=== PATIENT | male | born 1965 | race Caucasian/White ===

== ENCOUNTER 2020-10-29 14:21 | Inpatient (IN) | payer BC ==
[2020-10-29] MEDS ORDERED: KETOROLAC 15 MG/ML 1 ML VIAL IVP STA (15:17)
[2020-10-29] MEDS ORDERED: SODIUM CHLORIDE 0.9% 1,000 ML IV STA (15:17)
--- NOTE | 2020-10-29 15:25 | ED ---
Abdominal Pain HPI - General Chief Complaint: Abdominal Pain Stated Complaint: Abd Pain Source: patient, family, RN notes reviewed Mode of arrival: ambulatory Limitations: no limitations - History of Present Illness Initial Comments: 55-year-old white male, alert and oriented 4, presents to the emergency room with complaints right lower quadrant abdominal pain since Sunday and dark urine today. Patient was sent by his primary care doctor Dr. morgan for evaluation of kidney stone versus appendicitis. Patient states he has nausea but no vomiting or diarrhea. Patient states he drinks coffee in the morning and then maybe 1 glass of water throughout the day. Has noticed that his urine has been dark in color. Patient states he did have a small bowel movement yesterday. Denies hematochezia or hematemesis. He states that the pain is relieved with movement or is trying to get comfortable. He has been taking Advil which provides him some relief. Patient states that he does have some fever and chills. Patient denies abdominal pain or chest pain or pain that radiates into his mid back. Patient states he does have chronic low back pain. He is a pack-a-day smoker MD Complaint: abdominal pain -: days(s) (3) Location: RLQ Radiation: back (Low back pain but states chronic) Severity scale (1-10): 6 Quality: cramping Consistency: constant Improves With: movement Worsens With: nothing Associated Symptoms: nausea, chills, other (Dark urine) Treatments Prior to Arrival: NSAIDs (Advil) - Related Data Home Medications Medication Instructions Recorded Confirmed Ibuprofen [Advil] 400 mg PO Q8HR PRN 10/29/20 10/29/20 Allergies Allergy/AdvReac Type Severity Reaction Status Date / Time No Known Allergies Allergy Verified 10/29/20 15:41 Review of Systems ROS Statement: Those systems with pertinent positive or pertinent negative responses have been documented in the HPI. ROS Other: All systems not noted in ROS Statement are negative. Past Medical History Past Medical History: Hyperlipidemia History of Any Multi-Drug Resistant Organisms: None Reported Past Surgical History: No Surgical Hx Reported Past Psychological History: No Psychological Hx Reported Smoking Status: Current every day smoker Past Alcohol Use History: None Reported Past Drug Use History: None Reported General Exam Limitations: no limitations General appearance: alert, in no apparent distress Head exam: Present: atraumatic, normocephalic, normal inspection Eye exam: Present: normal appearance, PERRL, EOMI. Absent: scleral icterus, conjunctival injection, periorbital swelling Pupils: Present: normal accommodation ENT exam: Present: normal exam, normal oropharynx, mucous membranes moist Neck exam: Present: normal inspection, full ROM. Absent: tenderness, meningismus, lymphadenopathy Respiratory exam: Present: normal lung sounds bilaterally. Absent: respiratory distress, wheezes, rales, rhonchi, stridor, chest wall tenderness, accessory muscle use, decreased breath sounds Cardiovascular Exam: Present: regular rate, normal rhythm, normal heart sounds. Absent: systolic murmur, diastolic murmur, rubs, gallop, clicks GI/Abdominal exam: Present: soft, tenderness (Right lower quadrant), normal bowel sounds. Absent: distended, guarding, rebound, rigid Extremities exam: Present: normal inspection, full ROM, normal capillary refill. Absent: tenderness, pedal edema, joint swelling, calf tenderness Back exam: Present: normal inspection, full ROM. Absent: tenderness, CVA tenderness (R), CVA tenderness (L), muscle spasm, paraspinal tenderness, vertebral tenderness, rash noted Neurological exam: Present: alert, oriented X3, CN II-XII intact Psychiatric exam: Present: normal affect, normal mood Skin exam: Present: warm, dry, intact, normal color. Absent: rash, cyanosis, diaphoretic, erythema, petechiae, pallor, mottled Course Vital Signs 10/29/20 10/29/20 10/29/20 14:42 15:44 16:00 Temperature 99.1 F Pulse Rate 85 84 Respiratory 18 18 18 Rate Blood Pressure 115/71 124/81 O2 Sat by Pulse 98 96 Oximetry 10/29/20 10/29/20 17:00 18:00 Temperature Pulse Rate 84 81 Respiratory 18 18 Rate Blood Pressure 125/78 136/89 O2 Sat by Pulse 96 96 Oximetry Medical Decision Making - Medical Decision Making Patient with a WBC count of 17.7 and neutrophil count of 15.2, there is bilirubin level 2.9 with an alk phos of 172 which is comparable to the [address] shows diverticulitis with perforation there is mild sigmoid diverticulitis with perforation and there is no drainable abscess, there is moderate inflammatory changes around the sigmoid colon. 2+ ketones in the urine, patient given 2 L of normal saline. Case discussed with Dr Bonilla. Spoke with Dr Vora who will consult, will admit to medicine Dr Bee. - Lab Data Result diagrams: 10/29/20 15:45 10/29/20 15:45 Lab Results 10/29/20 10/29/20 10/29/20 Range/Units 15:45 15:45 15:45 WBC 17.7 H (3.8-10.6) k/uL RBC 4.71 (4.30-5.90) m/uL Hgb 16.9 (13.0-17.5) gm/dL Hct 46.5 (39.0-53.0) % MCV 98.9 (80.0-100.0) fL MCH 35.8 H (25.0-35.0) pg MCHC 36.3 (31.0-37.0) g/dL RDW 11.8 (11.5-15.5) % Plt Count 154 (150-450) k/uL MPV 8.0 Neutrophils % 86 % Lymphocytes % 6 % Monocytes % 6 % Eosinophils % 1 % Basophils % 0 % Neutrophils # 15.2 H (1.3-7.7) k/uL Lymphocytes # 1.1 (1.0-4.8) k/uL Monocytes # 1.1 H (0-1.0) k/uL Eosinophils # 0.1 (0-0.7) k/uL Basophils # 0.1 (0-0.2) k/uL PT 10.3 (9.0-12.0) sec INR 1.0 (<1.2) APTT 22.9 (22.0-30.0) sec Sodium (137-145) mmol/L Potassium (3.5-5.1) mmol/L Chloride (98-107) mmol/L Carbon Dioxide (22-30) mmol/L Anion Gap mmol/L BUN (9-20) mg/dL Creatinine (0.66-1.25) mg/dL Est GFR (CKD-EPI)AfAm (>60 ml/min/1.73 sqM) Est GFR (CKD-EPI)NonAf (>60 ml/min/1.73 sqM) Glucose (74-99) mg/dL Calcium (8.4-10.2) mg/dL Total Bilirubin (0.2-1.3) mg/dL AST (17-59) U/L ALT (4-49) U/L Alkaline Phosphatase (38-126) U/L Troponin I (0.000-0.034) ng/mL Total Protein (6.3-8.2) g/dL Albumin (3.5-5.0) g/dL Amylase (30-110) U/L Lipase (23-300) U/L Urine Color [place] Urine Appearance Clear (Clear) Urine pH 5.5 (5.0-8.0) Ur Specific [place] 1.028 (1.001-1.035) Urine Protein 1+ H (Negative) Urine Glucose (UA) Negative (Negative) Urine Ketones 2+ H (Negative) Urine Blood Large H (Negative) Urine Nitrite Negative (Negative) Urine Bilirubin 1+ H (Negative) Urine Urobilinogen 4.0 (<2.0) mg/dL Ur Leukocyte Esterase Small H (Negative) Urine RBC 13 H (0-5) /hpf Urine WBC 7 H (0-5) /hpf Ur Squamous Epith Cells <1 (0-4) /hpf Urine Bacteria Rare H (None) /hpf Hyaline Casts 3 H (0-2) /lpf Granular Casts 1 (0) /lpf Urine Mucus Few H (None) /hpf 10/29/20 10/29/20 Range/Units 15:45 15:45 WBC (3.8-10.6) k/uL RBC (4.30-5.90) m/uL Hgb (13.0-17.5) gm/dL Hct (39.0-53.0) % MCV (80.0-100.0) fL MCH (25.0-35.0) pg MCHC (31.0-37.0) g/dL RDW (11.5-15.5) % Plt Count (150-450) k/uL MPV Neutrophils % % Lymphocytes % % Monocytes % % Eosinophils % % Basophils % % Neutrophils # (1.3-7.7) k/uL Lymphocytes # (1.0-4.8) k/uL Monocytes # (0-1.0) k/uL Eosinophils # (0-0.7) k/uL Basophils # (0-0.2) k/uL PT (9.0-12.0) sec INR (<1.2) APTT (22.0-30.0) sec Sodium 136 L (137-145) mmol/L Potassium 4.1 (3.5-5.1) mmol/L Chloride 104 (98-107) mmol/L Carbon Dioxide 23 (22-30) mmol/L Anion Gap 9 mmol/L BUN 14 (9-20) mg/dL Creatinine 1.19 (0.66-1.25) mg/dL Est GFR (CKD-EPI)AfAm 78 (>60 ml/min/1.73 sqM) Est GFR (CKD-EPI)NonAf 68 (>60 ml/min/1.73 sqM) Glucose 111 H (74-99) mg/dL Calcium 8.9 (8.4-10.2) mg/dL Total Bilirubin 2.9 H (0.2-1.3) mg/dL AST 29 (17-59) U/L ALT 39 (4-49) U/L Alkaline Phosphatase 172 H (38-126) U/L Troponin I <0.012 (0.000-0.034) ng/mL Total Protein 6.8 (6.3-8.2) g/dL Albumin 4.1 (3.5-5.0) g/dL Amylase 66 (30-110) U/L Lipase 68 (23-300) U/L Urine Color Urine Appearance (Clear) Urine pH (5.0-8.0) Ur Specific [place] (1.001-1.035) Urine Protein (Negative) Urine Glucose (UA) (Negative) Urine Ketones (Negative) Urine Blood (Negative) Urine Nitrite (Negative) Urine Bilirubin (Negative) Urine Urobilinogen (<2.0) mg/dL Ur Leukocyte Esterase (Negative) Urine RBC (0-5) /hpf Urine WBC (0-5) /hpf Ur Squamous Epith Cells (0-4) /hpf Urine Bacteria (None) /hpf Hyaline Casts (0-2) /lpf Granular Casts (0) /lpf Urine Mucus (None) /hpf Disposition Clinical Impression: Diverticulitis Disposition: ADMITTED IP TO THIS [facility] Condition: Fair Decision Date: 10/29/20 Decision Time: 17:02
[2020-10-29 16:04] LABS: Basophils # (A) 0.1 k/uL (0-0.2); Basophils % (A) 0 %; Eosinophils # (A) 0.1 k/uL (0-0.7); Eosinophils % (A) 1 %; HCT 46.5 % (39.0-53.0); HGB 16.9 gm/dL (13.0-17.5); Lymphocytes # (A) 1.1 k/uL (1.0-4.8); Lymphocytes % (A) 6 %; MCH 35.8 pg (25.0-35.0); MCHC 36.3 g/dL (31.0-37.0); MCV 98.9 fL (80.0-100.0); Monocytes # (A) 1.1 k/uL (0-1.0); Monocytes % (A) 6 %; Neutrophils # (A) 15.2 k/uL (1.3-7.7); Neutrophils % (A) 86 %; Platelet Count 154 k/uL (150-450); RBC 4.71 m/uL (4.30-5.90); RDW 11.8 % (11.5-15.5); WBC 17.7 k/uL (3.8-10.6)
[2020-10-29 16:12] LABS: Partial Thromboplastin Time 22.9 sec (22.0-30.0); Prothrombin Time 10.3 sec (9.0-12.0)
[2020-10-29 16:15] LABS: Albumin 4.1 g/dL (3.5-5.0); Calcium 8.9 mg/dL (8.4-10.2); Potassium 4.1 mmol/L (3.5-5.1); Total Bilirubin 2.9 mg/dL (0.2-1.3); Total Protein 6.8 g/dL (6.3-8.2)
[2020-10-29] MEDS ORDERED: MORPHINE SULFATE 2 MG/ML SYRINGE IVP ONE (16:21)
--- NOTE | 2020-10-29 16:40 | CT ---
EXAMINATION TYPE: CT abdomen pelvis wo con DATE OF EXAM: 10/29/2020 COMPARISON: 04/09/2013 HISTORY: Right sided flank ad abdomen pain with unrination changes CT DLP: 827.9 mGycm Automated exposure control for dose reduction was used. Images obtained from the diaphragm to the floor the pelvis with no contrast. Lung bases are clear. There is no pleural effusion. Heart size is normal. There is no pericardial eff usion. Liver spleen stomach pancreas gallbladder appear intact. The bile ducts are not dilated. There is no adrenal mass. Kidneys show normal size and contour. There is no hydronephrosis. There is no retroperitoneal adenopathy. The ureters are not dilated. The bladder distends smoothly. There is n o inguinal hernia. There is no free fluid in the pelvis. There is no ascites. There is no free air in the anterior abdomen. There is moderate fat stranding around the sigmoid colon. There are numerous diverticula. There is ex traluminal air anterior to the mid sigmoid colon. There is no drainable fluid collection. Appendix appears normal. The lumbar vertebra have normal alignment. There is no compression fracture. Disc spaces are fairly n ormal. The bony pelvis is intact. Hip joints are intact. There is no hip dysplasia. IMPRESSION: There is sigmoid diverticulitis with perforation. No drainable abscess fluid seen. Moderate inflammat ory changes around the sigmoid colon. Diverticulitis is a change compared to old exam.
[2020-10-29] MEDS ORDERED: PIPERACILLIN-TAZOBACTAM 3.375 GM in SODIUM CHLORIDE 0.9% 100 ML IVPB STA (16:59)
[2020-10-29] MEDS ORDERED: NALOXONE 0.4 MG/ML 1 ML VIAL IV PRN (17:03)
[2020-10-29 18:09] LABS: Appearance,Urine Clear (Clear); Bacteria,Urine Rare /hpf; Bilirubin,Urine 1+ (Negative); Blood,Urine Large (Negative); Color,Urine Orange; Glucose,Urine (UA) Negative (Negative); Granular Casts,Urine 1 /lpf (0); Hyaline Casts,Urine 3 /lpf (0-2); Ketones,Urine 2+ (Negative); Leukocyte Esterase,Urine Small (Negative); Mucus,Urine Few /hpf; Nitrite,Urine Negative (Negative); PH, Urine 5.5 (5.0-8.0); Protein,Urine 1+ (Negative); RBC,Urine 13 /hpf (0-5); Specific Gravity,Urine 1.028 (1.001-1.035); Squamous Epithelial Cell,Urine <1 /hpf (0-4); WBC,Urine 7 /hpf (0-5)
[2020-10-29] MEDS: SODIUM CHLORIDE 0.9% 1,000 ML IV SCH (18:16)
[2020-10-29] MEDS ORDERED: SODIUM CHLORIDE 0.9% 1,000 ML IV ONE (18:21)
[2020-10-29] MEDS ORDERED: HYDROmorphone 0.5 MG/0.5 ML SYRINGE IVP PRN (20:46)
--- NOTE | 2020-10-29 22:49 | XR ---
EXAMINATION TYPE: XR abdomen acute w cxr DATE OF EXAM: 10/29/2020 COMPARISON: NONE HISTORY: Perforation TECHNIQUE: 5 views FINDINGS: There is no sign of intestinal obstruction or pneumoperitoneum. Fecal pattern is normal. Th ere are no pathologic calcifications over the kidneys. There is no heart failure. Lungs are clear of consolidation. There is no pleural effusion. There are no hilar masses. The bony structures are intact. IMPRESSION: Nonacute abdomen. No active cardiopulmonary disease. Limited exam due to artifact over th e left upper quadrant.
[2020-10-29] MEDS: HEPARIN SODIUM,PORCINE/PF 5,000 UNIT/0.5 ML SYRINGE SQ SCH (22:55)
[2020-10-30] MEDS: HYDROcodone/APAP 5-325MG 1 EACH TAB PO PRN ×4 (00:26→19:58)
[2020-10-30] MEDS: PIPERACILLIN-TAZOBACTAM 3.375 GM in SODIUM CHLORIDE 0.9% 100 ML IVPB SCH ×3 (01:50→17:04)
--- NOTE | 2020-10-30 06:38 | HP ---
HISTORY AND PHYSICAL DATE OF SERVICE: 10/29/2020 CHIEF COMPLAINTS: Abdominal pain. HISTORY OF PRESENT ILLNESS: This 55-year-old gentleman with a past medical history of hypertension, hyperlipidemia, being followed by Kris Alan in the outpatient setting, had been admitted with abdominal pain. The pain has been there for the last couple days in the lower part of the abdomen which is radiating across and the patient had an abdomen and pelvis CAT scan in the ER which showed evidence of sigmoid diverticulitis with perforation. No drainable abscess was noted. Moderate inflammatory changes also noted. The patient was admitted for further evaluation and treatment. There is no history of fever, rigors or chills. No history of headache, loss of consciousness, seizures. PAST MEDICAL HISTORY: History of hyperlipidemia, history of nicotine dependence. MEDICATIONS: Home medications are Advil. ALLERGIES: None. FAMILY HISTORY: No history of heart attacks or strokes in the family. SOCIAL HISTORY: History of smoking. REVIEW OF SYSTEMS: ENT No history of diminished hearing or vision. CARDIOVASCULAR No angina or palpitations. RESPIRATORY No cough, no hemoptysis. GI As mentioned earlier. No dysuria or hematuria. NERVOUS No numbness or weakness. ALLERGY/IMMUNOLOGY No asthma or hayfever. MUSCULOSKELETAL As mentioned earlier. HEMATOLOGY/ONCOLOGY Negative. ENDOCRINE No history of diabetes or hypothyroidism. CONSTITUTIONAL As mentioned earlier. DERMATOLOGY Negative. RHEUMATOLOGY Negative, PSYCHIATRY As mentioned earlier. PHYSICAL EXAMINATION: Alert and oriented x3. The pulse is 83, blood pressure 124/70, respirations 16, temperature 100.2, pulse ox 99% on room air. HEENT: Conjunctivae normal. Oral mucosa moist. NECK: No jugular venous distention. No lymph node enlargement. CARDIOVASCULAR: S1, S2, muffled. No S3, no S4, RESPIRATORY: Diminished breath sounds at the bases. No rhonchi, no crackles. ABDOMEN: Soft. Mild diffuse tenderness. No rebound tenderness. LEGS: No edema, no swelling. NERVOUS SYSTEM: Higher functions mentioned earlier. Moves all four limbs. No focal motor or sensory deficits. LYMPHATICS: No lymph node in neck or axilla. SKIN: No rash. JOINTS: No active deforming arthropathy. LABS: At this time shows WBC 17.2, hemoglobin 16.9, sodium 136, total bilirubin is 2.9. ASSESSMENT: 1. Acute diverticulitis with perforation with possible sepsis present on admission. 2. Increased WBC. 3. Severe abdominal pain. 4. Hyponatremia. 5. Elevated total bilirubin. 6. History of hyperlipidemia. 7. History of nicotine dependence. 8. FULL CODE. RECOMMENDATIONS AND DISCUSSION: In this 55-year-old gentleman who presented with multiple complex medical issues, we will monitor the patient closely, continue the current treatment, broad-spectrum IV antibiotics. Otherwise, symptomatic treatment, surgical evaluation. DVT prophylaxis. Proton pump inhibitors. Prognosis guarded because of multiple complex medical issues. Further recommendations to follow. MMODL / IJN: [id number] /
[2020-10-30] MEDS: SODIUM CHLORIDE 0.9% 1,000 ML IV SCH ×2 (06:42→13:40)
[2020-10-30] MEDS: HEPARIN SODIUM,PORCINE/PF 5,000 UNIT/0.5 ML SYRINGE SQ SCH ×2 (07:24→19:59)
[2020-10-30] MEDS ORDERED: ONDANSETRON 4 MG/2 ML VIAL IVP PRN (07:25)
[2020-10-30 09:17] LABS: Basophils # (A) 0.05 X 10*3/uL (0.00-0.10); Basophils % (A) 0.3 %; Eosinophils # (A) 0.04 X 10*3/uL (0.04-0.35); Eosinophils % (A) 0.3 %; HCT 40.2 % (39.6-50.0); HGB 14.1 g/dL (13.0-17.0); Lymphocytes # (A) 1.48 X 10*3/uL (0.90-5.00); Lymphocytes % (A) 9.5 %; MCH 35.3 pg (27.0-32.0); MCHC 35.1 g/dL (32.0-37.0); MCV 100.8 fL (80.0-97.0); Mean Platelet Volume 10.9 fL (9.5-12.2); Monocytes # (A) 1.26 X 10*3/uL (0.20-1.00); Monocytes % (A) 8.1 %; Neutrophils # (A) 12.59 X 10*3/uL (1.80-7.70); Neutrophils % (A) 81.2 %; Platelet Count 152 X 10*3/uL (140-440); RBC 3.99 X 10*6/uL (4.40-5.60); RDW 11.9 % (11.5-14.5); WBC 15.52 X 10*3/uL (4.50-10.00)
[2020-10-30 10:10] LABS: African American GFR (CKD) 85.9 (60.0-200.0); BUN/Creat Ratio 12.73 Ratio (12.00-20.00); Calcium 7.8 mg/dL (8.7-10.3); Non-African American GFR(CKD) 74.1 (60.0-200.0)
--- NOTE | 2020-10-30 13:14 | P.GSCN ---
History of Present Illness Consult date: 10/30/20 History of present illness: This 55-year-old male presented a hospital with a history of 3 days of left lower quadrant and suprapubic abdominal pain. He states that this began 3 days ago and progressively been getting worse he states that he's had small bowel movements but they've been painful he's never had diverticulitis in the past she's never had a colonoscopy before in the past. He denies any nausea or vomiting he denies any other recent illness. Past Medical History Past Medical History: Hyperlipidemia History of Any Multi-Drug Resistant Organisms: None Reported Past Surgical History: No Surgical Hx Reported Past Psychological History: No Psychological Hx Reported Smoking Status: Current every day smoker Past Alcohol Use History: None Reported Past Drug Use History: None Reported Medications and Allergies Home Medications Medication Instructions Recorded Confirmed Type Ibuprofen [Advil] 400 mg PO Q8HR PRN 10/29/20 10/29/20 History Allergies Allergy/AdvReac Type Severity Reaction Status Date / Time No Known Allergies Allergy Verified 10/29/20 15:41 Surgical - Exam Osteopathic Statement: *. No significant issues noted on an osteopathic structural exam other than those noted in the History and Physical/Consult. Vital Signs Temp Pulse Resp BP Pulse Ox 99.1 F 85 18 115/71 98 10/29/20 14:42 10/29/20 14:42 10/29/20 14:42 10/29/20 14:42 10/29/20 14:42 - General well developed, well nourished, no distress - Respiratory normal expansion - Abdomen Mild tenderness palpation left lower quadrant suprapubic no rebound no rigidity no guarding Abdomen: soft - Psychiatric oriented to time, oriented to person, oriented to place Results - Labs 10/30/20 06:12 10/30/20 06:12 Abnormal Lab Results - Last 24 Hours (Table) 10/29/20 10/29/20 10/29/20 Range/Units 15:45 15:45 15:45 WBC 17.7 H (3.8-10.6) k/uL RBC (4.40-5.60) X 10*6/uL MCV (80.0-97.0) fL MCH 35.8 H (25.0-35.0) pg Immature Gran # (0.00-0.04) X 10*3/uL Neutrophils # 15.2 H (1.3-7.7) k/uL Monocytes # 1.1 H (0-1.0) k/uL Sodium 136 L (137-145) mmol/L Carbon Dioxide (21.6-31.8) mmol/L Glucose 111 H (74-99) mg/dL Calcium (8.7-10.3) mg/dL Total Bilirubin 2.9 H (0.2-1.3) mg/dL Alkaline Phosphatase 172 H (38-126) U/L Urine Protein 1+ H (Negative) Urine Ketones 2+ H (Negative) Urine Blood Large H (Negative) Urine Bilirubin 1+ H (Negative) Ur Leukocyte Esterase Small H (Negative) Urine RBC 13 H (0-5) /hpf Urine WBC 7 H (0-5) /hpf Urine Bacteria Rare H (None) /hpf Hyaline Casts 3 H (0-2) /lpf Urine Mucus Few H (None) /hpf 10/30/20 10/30/20 Range/Units 06:12 06:12 WBC 15.52 H (3.8-10.6) k/uL RBC 3.99 L (4.40-5.60) X 10*6/uL MCV 100.8 H (80.0-97.0) fL MCH 35.3 H (25.0-35.0) pg Immature Gran # 0.10 H (0.00-0.04) X 10*3/uL Neutrophils # 12.59 H (1.3-7.7) k/uL Monocytes # 1.26 H (0-1.0) k/uL Sodium (137-145) mmol/L Carbon Dioxide 21.0 L (21.6-31.8) mmol/L Glucose (74-99) mg/dL Calcium 7.8 L (8.7-10.3) mg/dL Total Bilirubin (0.2-1.3) mg/dL Alkaline Phosphatase (38-126) U/L Urine Protein (Negative) Urine Ketones (Negative) Urine Blood (Negative) Urine Bilirubin (Negative) Ur Leukocyte Esterase (Negative) Urine RBC (0-5) /hpf Urine WBC (0-5) /hpf Urine Bacteria (None) /hpf Hyaline Casts (0-2) /lpf Urine Mucus (None) /hpf Diabetes panel 10/29/20 10/30/20 Range/Units 15:45 06:12 Sodium 136 L 137 (137-145) mmol/L Potassium 4.1 4.0 (3.5-5.1) mmol/L Chloride 104 108 (98-107) mmol/L Carbon Dioxide 23 21.0 L (22-30) mmol/L BUN 14 14.0 (9-20) mg/dL Creatinine 1.19 1.1 (0.66-1.25) mg/dL Glucose 111 H 92 (74-99) mg/dL Calcium 8.9 7.8 L (8.4-10.2) mg/dL AST 29 (17-59) U/L ALT 39 (4-49) U/L Alkaline Phosphatase 172 H (38-126) U/L Total Protein 6.8 (6.3-8.2) g/dL Albumin 4.1 (3.5-5.0) g/dL Calcium panel 10/29/20 10/30/20 Range/Units 15:45 06:12 Calcium 8.9 7.8 L (8.4-10.2) mg/dL Albumin 4.1 (3.5-5.0) g/dL Pituitary panel 10/29/20 10/30/20 Range/Units 15:45 06:12 Sodium 136 L 137 (137-145) mmol/L Potassium 4.1 4.0 (3.5-5.1) mmol/L Chloride 104 108 (98-107) mmol/L Carbon Dioxide 23 21.0 L (22-30) mmol/L BUN 14 14.0 (9-20) mg/dL Creatinine 1.19 1.1 (0.66-1.25) mg/dL Glucose 111 H 92 (74-99) mg/dL Calcium 8.9 7.8 L (8.4-10.2) mg/dL Adrenal panel 10/29/20 10/30/20 Range/Units 15:45 06:12 Sodium 136 L 137 (137-145) mmol/L Potassium 4.1 4.0 (3.5-5.1) mmol/L Chloride 104 108 (98-107) mmol/L Carbon Dioxide 23 21.0 L (22-30) mmol/L BUN 14 14.0 (9-20) mg/dL Creatinine 1.19 1.1 (0.66-1.25) mg/dL Glucose 111 H 92 (74-99) mg/dL Calcium 8.9 7.8 L (8.4-10.2) mg/dL Total Bilirubin 2.9 H (0.2-1.3) mg/dL AST 29 (17-59) U/L ALT 39 (4-49) U/L Alkaline Phosphatase 172 H (38-126) U/L Total Protein 6.8 (6.3-8.2) g/dL Albumin 4.1 (3.5-5.0) g/dL Assessment and Plan Assessment: Acute diverticulitis Plan: Continue nothing by mouth IV fluids and IV antibiotics at this time. As patient's symptoms began to improve he may start on a clear liquid diet no plans for acute surgical intervention at this time continue to closely monitor
[2020-10-30 18:18] LABS: ALT 23 U/L (4-49); AST 23 U/L (17-59); African American GFR (CKD) >90 (>60 ml/min/1.73 sqM); Albumin 3.3 g/dL (3.5-5.0); Albumin/Globulin Ratio 1.2; Alkaline Phosphatase 124 U/L (38-126); Anion Gap 7 mmol/L; Blood Urea Nitrogen 14 mg/dL (9-20); Calcium 8.1 mg/dL (8.4-10.2); Carbon Dioxide 22 mmol/L (22-30); Chloride 109 mmol/L (98-107); Globulin 2.7 g/dL; Glucose 90 mg/dL (74-99); Non-African American GFR(CKD) 83 (>60 ml/min/1.73 sqM); Potassium 4.1 mmol/L (3.5-5.1); Sodium 138 mmol/L (137-145); Total Bilirubin 2.5 mg/dL (0.2-1.3)
--- NOTE | 2020-10-30 20:37 | PN ---
PROGRESS NOTE DATE OF SERVICE: 10/30/2020. HISTORY: This 55-year-old gentleman who was admitted with acute diverticular perforation with possible sepsis is being closely monitored at this time. Surgery has seen the patient and Dr. Vora has recommended n.p.o. No plans for any acute surgical intervention. No chest pain. No palpitations. No fever. PHYSICAL EXAMINATION: Alert and oriented. Pulse 79, blood pressure 115/60, respirations 16, temperature 98.7, pulse ox 98% on room air. HEENT: Conjunctivae normal. CARDIOVASCULAR: S1, S2, muffled. No S3, no S4. RESPIRATORY: Diminished breath sounds at the bases a few scattered rhonchi. ABDOMEN: Soft mild diffuse discomfort. EXTREMITIES: Legs are no edema. No swelling. CENTRAL NERVOUS SYSTEM: No focal deficits. LABS: WBC 15.52. Sodium is 137, potassium is 4. ASSESSMENT: 1. Acute diverticulitis with perforation with possible sepsis present on admission. 2. Increased WBC. 3. Severe abdominal pain. 4. Hyponatremia. 5. Elevated total bilirubin. 6. History of hyperlipidemia. 7. History of nicotine dependence. 8. FULL CODE. RECOMMENDATIONS: Continue current management and symptomatic treatment. Continue the broad-spectrum IV antibiotics. The cultures are negative so far. Closely follow with surgery. DVT prophylaxis. Guarded prognosis. Further recommendations to follow. Pain management. MMODL / IJN: [id number] /
[2020-10-31] MEDS: PIPERACILLIN-TAZOBACTAM 3.375 GM in SODIUM CHLORIDE 0.9% 100 ML IVPB SCH ×3 (01:26→17:11)
[2020-10-31] MEDS: SODIUM CHLORIDE 0.9% 1,000 ML IV SCH ×3 (01:29→19:21)
[2020-10-31] MEDS: HYDROcodone/APAP 5-325MG 1 EACH TAB PO PRN (04:12)
[2020-10-31] MEDS: HEPARIN SODIUM,PORCINE/PF 5,000 UNIT/0.5 ML SYRINGE SQ SCH ×2 (07:13→19:25)
[2020-10-31 10:50] LABS: Basophils # (A) 0.03 X 10*3/uL (0.00-0.10); Basophils % (A) 0.3 %; Eosinophils # (A) 0.17 X 10*3/uL (0.04-0.35); Eosinophils % (A) 1.6 %; HGB 13.4 g/dL (13.0-17.0); Lymphocytes # (A) 1.32 X 10*3/uL (0.90-5.00); Lymphocytes % (A) 12.2 %; MCH 34.9 pg (27.0-32.0); MCHC 33.5 g/dL (32.0-37.0); MCV 104.2 fL (80.0-97.0); Monocytes # (A) 0.77 X 10*3/uL (0.20-1.00); Monocytes % (A) 7.1 %; Neutrophils # (A) 8.49 X 10*3/uL (1.80-7.70); Neutrophils % (A) 78.1 %; Platelet Count 152 X 10*3/uL (140-440); RBC 3.84 X 10*6/uL (4.40-5.60); WBC 10.86 X 10*3/uL (4.50-10.00)
--- NOTE | 2020-10-31 14:13 | P.PN ---
Subjective Progress Note Date: 10/31/20 Patient is doing well today his pain is somewhat improved but still there and the left lower quadrant. He did have a bowel movement this afternoon. Objective - Vital Signs Vital signs: Vital Signs Temp 97.7 F 10/31/20 13:56 Pulse 74 10/31/20 13:56 Resp 18 10/31/20 13:56 BP 108/65 10/31/20 13:56 Pulse Ox 97 10/31/20 13:56 Intake & Output 10/30/20 10/31/20 10/31/20 18:59 06:59 18:59 Intake Total 1000 1000 Balance 1000 1000 Intake: Intake, IV Titration 1000 1000 Amount Piperacillin-Tazobactam 3 200 200 .375 gm In Sodium Chloride 0.9% 100 ml @ 25 mls/hr IVPB Q8H [facility] Rx#: [id number] Sodium Chloride 0.9% 1, 800 800 000 ml @ 100 mls/hr IV . Q10H [facility] Rx#:[id number] Other: Voiding Method Toilet # Voids 2 # Bowel Movements 0 - Constitutional General appearance: Present: cooperative - Cardiovascular Rhythm: regular - Gastrointestinal Gastrointestinal Comment(s): Soft nondistended minimal tenderness palpation left lower quadrant - Labs CBC & Chem 7: 10/31/20 05:12 10/30/20 17:31 Labs: Abnormal Lab Results - Last 24 Hours (Table) 10/30/20 10/31/20 Range/Units 17:31 05:12 WBC 10.86 H (4.50-10.00) X 10*3/uL RBC 3.84 L (4.40-5.60) X 10*6/uL MCV 104.2 H (80.0-97.0) fL MCH 34.9 H (27.0-32.0) pg Immature Gran # 0.08 H (0.00-0.04) X 10*3/uL Neutrophils # 8.49 H (1.80-7.70) X 10*3/uL Chloride 109 H (98-107) mmol/L Calcium 8.1 L (8.4-10.2) mg/dL Total Bilirubin 2.5 H (0.2-1.3) mg/dL Total Protein 6.0 L (6.3-8.2) g/dL Albumin 3.3 L (3.5-5.0) g/dL Microbiology - Last 24 Hours (Table) 10/30/20 17:44 Urine Culture - Preliminary Urine,Clean Catch Assessment and Plan Assessment: Acute diverticulitis Plan: Patient may have sparing clears. Continue IV antibiotics continue to monitor.
--- NOTE | 2020-10-31 15:09 | PN ---
PROGRESS NOTE DATE OF SERVICE: 10/31/2020 HISTORY: This 55-year-old gentleman who was admitted with acute diverticulosis and possible perforation with sepsis being closely monitored at this time. The cultures are negative. The patient on broad spectrum IV antibiotics. Surgery is following the patient closely. PHYSICAL EXAMINATION: Alert and oriented. Pulse 74, blood pressure 108/60, respiration 18, temperature 97.7, pulse ox 97% on room air. HEENT: Normal. CARDIOVASCULAR: S1, S2 muffled. RESPIRATORY: Diminished respiration in the bases, no rhonchi. ABDOMEN: Soft, mild diffuse distention. LEGS: No edema, no swelling. LABS: WBC 10.86, hemoglobin 13.4. UA noted. ASSESSMENT: 1. Acute diverticulitis with possible perforation with possible sepsis present on admission. 2. Increased WBC. 3. Severe abdominal pain. 4. Hyponatremia. 5. Elevated total bilirubin. 6. History of hyperlipidemia. 7. History of nicotine dependence. 8. FULL CODE. RECOMMENDATIONS AND DISCUSSION: I recommend to continue current medications, management and treatment. Otherwise at this time I recommend repeat labs, continue the antibiotics. Closely follow with surgery. Guarded prognosis. MMODL / IJN: [id number] /
[2020-10-31 15:43] LABS: ALT 20 U/L (4-49); AST 24 U/L (17-59); African American GFR (CKD) >90 (>60 ml/min/1.73 sqM); Albumin 3.1 g/dL (3.5-5.0); Albumin/Globulin Ratio 1.2; Alkaline Phosphatase 123 U/L (38-126); Anion Gap 9 mmol/L; Blood Urea Nitrogen 13 mg/dL (9-20); Calcium 8.1 mg/dL (8.4-10.2); Carbon Dioxide 19 mmol/L (22-30); Chloride 110 mmol/L (98-107); Globulin 2.6 g/dL; Glucose 81 mg/dL (74-99); Non-African American GFR(CKD) >90 (>60 ml/min/1.73 sqM); Potassium 3.8 mmol/L (3.5-5.1); Sodium 138 mmol/L (137-145); Total Bilirubin 2.2 mg/dL (0.2-1.3); Total Protein 5.7 g/dL (6.3-8.2)
[2020-11-01] MEDS ORDERED: ACETAMINOPHEN TAB 325 MG TAB PO PRN (00:49)
[2020-11-01] MEDS: PIPERACILLIN-TAZOBACTAM 3.375 GM in SODIUM CHLORIDE 0.9% 100 ML IVPB SCH ×3 (01:03→17:54)
[2020-11-01] MEDS: SODIUM CHLORIDE 0.9% 1,000 ML IV SCH ×3 (05:35→17:56)
[2020-11-01] MEDS: HEPARIN SODIUM,PORCINE/PF 5,000 UNIT/0.5 ML SYRINGE SQ SCH ×2 (07:10→17:52)
[2020-11-01 08:45] LABS: Basophils # (A) 0.05 X 10*3/uL (0.00-0.10); Basophils % (A) 0.6 %; Eosinophils # (A) 0.29 X 10*3/uL (0.04-0.35); Eosinophils % (A) 3.6 %; HCT 38.3 % (39.6-50.0); HGB 13.3 g/dL (13.0-17.0); Lymphocytes # (A) 1.68 X 10*3/uL (0.90-5.00); Lymphocytes % (A) 20.9 %; MCH 35.3 pg (27.0-32.0); MCHC 34.7 g/dL (32.0-37.0); MCV 101.6 fL (80.0-97.0); Monocytes # (A) 0.64 X 10*3/uL (0.20-1.00); Neutrophils # (A) 5.32 X 10*3/uL (1.80-7.70); Neutrophils % (A) 66.2 %; Platelet Count 166 X 10*3/uL (140-440); RBC 3.77 X 10*6/uL (4.40-5.60); RDW 11.7 % (11.5-14.5); WBC 8.04 X 10*3/uL (4.50-10.00)
[2020-11-01 09:44] LABS: African American GFR (CKD) 109.5 (60.0-200.0); Anion Gap 12.1 mmol/L (4.00-12.00); BUN/Creat Ratio 11.11 Ratio (12.00-20.00); Calcium 8.1 mg/dL (8.7-10.3); Carbon Dioxide 19.9 mmol/L (21.6-31.8); Non-African American GFR(CKD) 94.5 (60.0-200.0)
--- NOTE | 2020-11-01 14:51 | P.PN ---
Subjective Progress Note Date: 11/01/20 Pain improved, tolerating clears Objective - Vital Signs Vital signs: Vital Signs Temp 98.4 F 11/01/20 01:07 Pulse 76 11/01/20 01:07 Resp 15 11/01/20 01:07 BP 132/82 11/01/20 01:07 Pulse Ox 98 11/01/20 01:07 Intake & Output 10/31/20 11/01/20 11/01/20 18:59 06:59 18:59 Intake Total 1240 240 200 Balance 1240 240 200 Intake: Intake, IV Titration 1000 Amount Piperacillin-Tazobactam 3 200 .375 gm In Sodium Chloride 0.9% 100 ml @ 25 mls/hr IVPB Q8H SW[facility] Rx#: [id number] Sodium Chloride 0.9% 1, 800 000 ml @ 100 mls/hr IV . Q10H SWAPNIL Rx#:[id number] Oral 240 240 200 Other: Voiding Method Toilet # Voids 3 - Constitutional General appearance: Present: cooperative - Cardiovascular Rhythm: regular - Gastrointestinal Gastrointestinal Comment(s): S/NT/ND - Labs CBC & Chem 7: 11/01/20 05:43 11/01/20 05:43 Labs: Abnormal Lab Results - Last 24 Hours (Table) 10/31/20 11/01/20 11/01/20 Range/Units 14:54 05:43 05:43 RBC 3.77 L (4.40-5.60) X 10*6/uL Hct 38.3 L (39.6-50.0) % MCV 101.6 H (80.0-97.0) fL MCH 35.3 H (27.0-32.0) pg Immature Gran # 0.06 H (0.00-0.04) X 10*3/uL Chloride 110 H (98-107) mmol/L Carbon Dioxide 19 L 19.9 L (22-30) mmol/L Anion Gap 12.10 H (4.00-12.00) mmol/L BUN/Creatinine Ratio 11.11 L (12.00-20.00) Ratio Calcium 8.1 L 8.1 L (8.4-10.2) mg/dL Total Bilirubin 2.2 H (0.2-1.3) mg/dL Total Protein 5.7 L (6.3-8.2) g/dL Albumin 3.1 L (3.5-5.0) g/dL Microbiology - Last 24 Hours (Table) 10/30/20 17:44 Urine Culture - Final Urine,Clean Catch 10/30/20 17:31 Blood Culture - Preliminary Blood No Growth after 24 hours Assessment and Plan Assessment: Acute diverticulitis Plan: Patient is doing much better today, he can trial a soft diet. Stable from surgical standpoint once tolerating diet to go home on oral antibiotics. He will need to follow up with me 6 weeks after resolution of diverticulitis for colonoscopy.
--- NOTE | 2020-11-01 17:25 | PN ---
PROGRESS NOTE DATE OF SERVICE: 11/01/2020. INTERVAL HISTORY: This 55-year-old gentleman who was admitted with acute diverticulitis with possible perforation, is on IV antibiotics. The patient is closely monitored. No chest pain. Surgery is following the patient closely. PHYSICAL EXAMINATION: Alert pulse 76 blood pressure 130/80, respiration rate 715, temperature 98.2, pulse ox 98% on room air. HEENT: Normal. Respiration: ( ) bases, no rhonchi, no crackles. Abdomen: Soft mild diffuse tenderness present, no guarding, no mass palpable. Legs are no edema. No swelling. LABS: WBC 8.04, hemoglobin 13.3. ASSESSMENT: 1. Acute diverticulitis with possible perforation with possible sepsis present on admission. 2. Increased WBC. 3. Severe abdominal pain, improving. 4. Hyponatremia. 5. Elevated total bilirubin. 6. History of hyperlipidemia. 7. History of nicotine dependence. 8. FULL CODE. RECOMMENDATIONS AND DISCUSSION: Continue current medications, IV antibiotics, follow surgery. Start antibiotics otherwise LFTs stabilized at this time. The bilirubin is 2.2. We will continue to monitor. Repeat labs. Further recommendations to follow. MMODL / IJN: [id number] /
[2020-11-02] MEDS: PIPERACILLIN-TAZOBACTAM 3.375 GM in SODIUM CHLORIDE 0.9% 100 ML IVPB SCH ×2 (03:06→10:18)
[2020-11-02] MEDS: SODIUM CHLORIDE 0.9% 1,000 ML IV SCH (03:06)
[2020-11-02 09:30] LABS: Basophils # (A) 0.05 X 10*3/uL (0.00-0.10); Basophils % (A) 0.6 %; Eosinophils # (A) 0.28 X 10*3/uL (0.04-0.35); Eosinophils % (A) 3.5 %; HCT 39.3 % (39.6-50.0); HGB 13.4 g/dL (13.0-17.0); Lymphocytes # (A) 1.58 X 10*3/uL (0.90-5.00); Lymphocytes % (A) 19.9 %; MCH 34.4 pg (27.0-32.0); MCHC 34.1 g/dL (32.0-37.0); Mean Platelet Volume 10.8 fL (9.5-12.2); Monocytes # (A) 0.71 X 10*3/uL (0.20-1.00); Neutrophils # (A) 5.26 X 10*3/uL (1.80-7.70); Neutrophils % (A) 66.4 %; Platelet Count 183 X 10*3/uL (140-440); RBC 3.89 X 10*6/uL (4.40-5.60); RDW 11.8 % (11.5-14.5); WBC 7.93 X 10*3/uL (4.50-10.00)
[2020-11-02] MEDS: HEPARIN SODIUM,PORCINE/PF 5,000 UNIT/0.5 ML SYRINGE SQ SCH (10:18)
--- NOTE | 2020-11-02 11:34 | P.PN ---
Subjective Progress Note Date: 11/02/20 Pain improved, tolerating soft Objective - Vital Signs Vital signs: Vital Signs Temp 98.6 F 11/02/20 08:00 Pulse 60 11/02/20 08:00 Resp 17 11/02/20 08:00 BP 122/78 11/02/20 08:00 Pulse Ox 97 11/02/20 08:00 Intake & Output 11/01/20 11/02/20 11/02/20 18:59 06:59 18:59 Intake Total 2640 Balance 2640 Intake: Intake, IV Titration 1400 Amount Piperacillin-Tazobactam 3 200 .375 gm In Sodium Chloride 0.9% 100 ml @ 25 mls/hr IVPB Q8H SWAPNIL Rx#: [id number] Sodium Chloride 0.9% 1, 1200 000 ml @ 100 mls/hr IV . Q10H SWAP[facility]IL Rx#:[id number] Oral 1240 Other: Voiding Method Toilet Toilet Toilet # Voids 3 1 - Cardiovascular Rhythm: regular - Gastrointestinal Gastrointestinal Comment(s): S/NT/ND - Labs CBC & Chem 7: 11/02/20 05:26 11/01/20 05:43 Labs: Abnormal Lab Results - Last 24 Hours (Table) 11/02/20 Range/Units 05:26 RBC 3.89 L (4.40-5.60) X 10*6/uL Hct 39.3 L (39.6-50.0) % MCV 101.0 H (80.0-97.0) fL MCH 34.4 H (27.0-32.0) pg Immature Gran # 0.05 H (0.00-0.04) X 10*3/uL Microbiology - Last 24 Hours (Table) 10/30/20 17:31 Blood Culture - Preliminary Blood No Growth after 48 hours Assessment and Plan Assessment: Acute diverticulitis Plan: Stable from surgical standpoint to go home on oral antibiotics. He will need to follow up with me 6 weeks after resolution of diverticulitis for colonoscopy.
[2020-11-02 13:37] VITALS: BP 120/78; PULSE 65; RESP 18; TEMP 98.5
[2020-11-02 15:12] LABS: African American GFR (CKD) 96.4 (60.0-200.0); Albumin 3.5 g/dL (3.80-4.90); Albumin/Globulin Ratio 1.67 (1.60-3.17); Anion Gap 8.3 mmol/L (4.00-12.00); Carbon Dioxide 23.7 mmol/L (21.6-31.8); Globulin 2.1 g/dL (1.6-3.3); Non-African American GFR(CKD) 83.2 (60.0-200.0); Potassium 3.7 mmol/L (3.5-5.5); Total Bilirubin 0.9 mg/dL (0.3-1.2); Total Protein 5.6 g/dL (6.2-8.2)
--- NOTE | 2020-11-02 16:02 | P.DS ---
Providers Date of admission: 10/29/20 17:41 Attending physician: Flora Barajas MD Consults: 10/29/20 17:04 Consult Physician Urgent Consulting Provider: Kj Vora Consult Reason/Comments: Diverticulitis with perforation Do you want consulting provider notified?: Already Contacted Primary care physician: Waqas Braden [facility] Course: 55-year-old male was admitted for acute diverticulitis, patient was a evaluated with Gen. surgery as there was a possibility of mild perforation.. Patient had significant improvement patient was on Zosyn during this hospitalization patient will be discharged on 6 more days of Augmentin completing total 10 day of therapy patient was evaluated by general surgery they cleared for discharge. Patient is otherwise clinically doing well. PHYSICAL EXAMINATION: GENERAL: The patient is alert and oriented x3, not in any acute distress. Well developed, well nourished. HEENT: Pupils are round and equally reacting to light. EOMI. No scleral icterus. No conjunctival pallor. Normocephalic, atraumatic. No pharyngeal erythema. No thyromegaly. CARDIOVASCULAR: S1 and S2 present. No murmurs, rubs, or gallops. PULMONARY: Chest is clear to auscultation, no wheezing or crackles. ABDOMEN: Soft, nontender, nondistended, normoactive bowel sounds. No palpable organomegaly. MUSCULOSKELETAL: No joint swelling or deformity. EXTREMITIES: No cyanosis, clubbing, or pedal edema. NEUROLOGICAL: Gross neurological examination did not reveal any focal deficits. SKIN: No rashes. Assessment: Acute diverticulitis, for rest of the medical problems please refer to the progress note from Dr. Bee from yesterday Patient Condition at Discharge: Good Plan - Discharge Summary Discharge Rx Participant: No New Discharge Prescriptions: New Amoxic-Pot Clav 875-125Mg [Augmentin 875-125] 1 tab PO Q12HR 1 Days #12 tab No Action Ibuprofen [Advil] 400 mg PO Q8HR PRN PRN Reason: Pain Discharge Medication List Ibuprofen [Advil] 400 mg PO Q8HR PRN 10/29/20 [History] Amoxic-Pot Clav 875-125Mg [Augmentin 875-125] 1 tab PO Q12HR 1 Days #12 tab 11/02/20 [Rx] Follow up Appointment(s)/Referral(s): Kj Vora DO [Doctor of Osteopathic Medicine] - 6 Weeks (CALL TO SCHEDULE COLONOSCOPY) Sofia Alan MD [Primary Care Provider] - 11/04/20 1:50 pm Patient Instructions/Handouts: Diverticulitis (DC), Diverticulitis Diet (DC) Discharge Disposition: HOME SELF-CARE
== END 2020-11-02 14:39 | disposition home or self-care (01) | DRG 872 ==
LOC: EC 14:21 → 4SSUR 17:41
PROVIDERS: ADMIT Internal Medicine; ATTEND Internal Medicine
DX: A41.9 Sepsis, unspecified organism (principal); E87.1 Hypo-osmolality and hyponatremia; K57.20 Diverticulitis of large intestine with perforation and abscess without bleeding; E78.5 Hyperlipidemia, unspecified; F17.210 Nicotine dependence, cigarettes, uncomplicated; G89.29 Other chronic pain; I10 Essential (primary) hypertension; M54.5 Low back pain; Z20.822 Contact with and (suspected) exposure to COVID-19
CPT/HCPCS: 36415; 74022; 74176; 80048; 80053; 81001; 82150; 83605; 83690; 84484; 85025; 85610; 85730; 87040; 87086; 87635; 93005; 96361; 96374; 99285

== ENCOUNTER 2021-01-05 00:49 | Emergency (ER) | payer BC ==
[2021-01-05 00:54] VITALS: BP 154/88; PULSE 80; RESP 18; TEMP 97.6
[2021-01-05] MEDS ORDERED: KETOROLAC 15 MG/ML 1 ML VIAL IM STA (01:10)
[2021-01-05] MEDS ORDERED: LIDOCAINE 5% PATCH TOPICAL STA (01:11)
--- NOTE | 2021-01-05 01:15 | ED ---
Back Pain HPI - General Chief Complaint: Back Pain/Injury Stated Complaint: Back Pain Time Seen by Provider: 01/05/21 01:04 Source: patient, RN notes reviewed Limitations: no limitations - History of Present Illness Initial Comments: This is a 55-year-old male presents emergency from chief complaint of low back pain. Patient states it started earlier today states on the he can think is that he was getting his dogs into his vehicle states that when he twisted quickly by daughter attempted to jump out. Patient states that pain is not worse with any sort of movement. Patient denies any bowel bladder incontinence or retentionno saddle anesthesia or lower extremity paresthesias. He states he applied some topical full-term, BenGay and Biofreeze with no significant changes . Patient has no current abdominal pain no fevers chills no chest pain or shortness of breath. - Related Data Home Medications Medication Instructions Recorded Confirmed Ibuprofen [Advil] 400 mg PO Q8HR PRN 10/29/20 10/29/20 Previous Rx's Medication Instructions Recorded Amoxic-Pot Clav 875-125Mg 1 tab PO Q12HR 1 Days #12 tab 11/02/20 [Augmentin 875-125] Cyclobenzaprine [Flexeril] 10 mg PO TID PRN #15 tab 01/05/21 Ibuprofen [Motrin] 600 mg PO Q8HR PRN #20 tab 01/05/21 predniSONE 50 mg PO DAILY #5 tab 01/05/21 Allergies Allergy/AdvReac Type Severity Reaction Status Date / Time No Known Allergies Allergy Verified 01/05/21 00:54 Review of Systems ROS Statement: Those systems with pertinent positive or pertinent negative responses have been documented in the HPI. ROS Other: All systems not noted in ROS Statement are negative. Past Medical History Past Medical History: Hyperlipidemia History of Any Multi-Drug Resistant Organisms: None Reported Past Surgical History: No Surgical Hx Reported Past Psychological History: No Psychological Hx Reported Smoking Status: Current every day smoker Past Alcohol Use History: None Reported Past Drug Use History: None Reported General Exam Limitations: no limitations General appearance: alert, in no apparent distress Head exam: Present: atraumatic, normocephalic, normal inspection Neck exam: Present: normal inspection, full ROM. Absent: tenderness, meningismus, lymphadenopathy Respiratory exam: Present: normal lung sounds bilaterally. Absent: respiratory distress, wheezes, rales, rhonchi, stridor Cardiovascular Exam: Present: regular rate, normal rhythm, normal heart sounds. Absent: systolic murmur, diastolic murmur, rubs, gallop, clicks GI/Abdominal exam: Present: soft, normal bowel sounds. Absent: distended, tenderness, guarding, rebound, rigid Extremities exam: Present: normal inspection, full ROM, normal capillary refill, other (Lower strongly pulses equal bilaterally neurovascular intact full strength pain with range of motion). Absent: tenderness, pedal edema, joint swelling, calf tenderness Back exam: Present: normal inspection, full ROM (Discomfort), tenderness, muscle spasm, paraspinal tenderness. Absent: CVA tenderness (R), CVA tenderness (L), vertebral tenderness Neurological exam: Present: alert, reflexes normal. Absent: motor sensory deficit Course Vital Signs 01/05/21 00:51 Temperature 97.6 F Pulse Rate 80 Respiratory 18 Rate Blood Pressure 154/88 O2 Sat by Pulse 96 Oximetry Medical Decision Making - Medical Decision Making X-ray shows degenerative changes. Patient has no red flag symptoms. Patient discharged in stable condition. Lumbar strain Disposition Clinical Impression: Strain of lumbar region Disposition: HOME SELF-CARE Condition: Stable Instructions (If sedation given, give patient instructions): Acute Low Back Pain (ED) Additional Instructions: Please return to the Emergency Department if symptoms worsen or any other concerns. Prescriptions: Cyclobenzaprine [Flexeril] 10 mg PO TID PRN #15 tab PRN Reason: Muscle Spasm Ibuprofen [Motrin] 600 mg PO Q8HR PRN #20 tab PRN Reason: Pain predniSONE 50 mg PO DAILY #5 tab Is patient prescribed a controlled substance at d/c from ED?: No Referrals: Sofia Alan MD [Primary Care Provider] - 1-2 days Time of Disposition: 02:20
[2021-01-05] MEDS ORDERED: ACET/COD 300 MG/30 MG STARTER PACK 6 TAB BTL PO STA (02:18)
[2021-01-05] MEDS ORDERED: CYCLOBENZAPRINE 10MG STARTER 3 TAB BTL PO STA (02:19)
--- NOTE | 2021-01-05 02:37 | XR ---
EXAMINATION TYPE: XR lumbar spine 2 or 3V DATE OF EXAM: 01/05/2021 COMPARISON: NONE HISTORY: Low back pain TECHNIQUE: 3 view FINDINGS: Lumbar vertebra have normal alignment. Posterior elements are intact. There is anterior spu r formation throughout the lumbar spine. There is no compression fracture. Sacroiliac joints are inta ct. IMPRESSION: Degenerative spur formation. No fracture. No significant disc space narrowing.
== END 2021-01-05 02:35 | disposition home or self-care (01) ==
LOC: EC 00:49
DX: S39.012A Strain of muscle, fascia and tendon of lower back, initial encounter (principal); E78.5 Hyperlipidemia, unspecified; F17.200 Nicotine dependence, unspecified, uncomplicated; Z79.1 Long term (current) use of non-steroidal anti-inflammatories (NSAID); X50.1XXA Overexertion from prolonged static or awkward postures, initial encounter
CPT/HCPCS: 72100; 96372; 99283; J1885

== ENCOUNTER → 2023-01-23 | Outpatient (CLI) | payer BC ==
--- NOTE | 2023-01-24 15:35 | CTL ---
EXAMINATION TYPE: CT Low Dose Lung DATE OF EXAM: 01/23/2023 4:13 PM CLINICAL INDICATION:Male, 57 years old with history of Z12.2,F17.210; Tobacco dependence. 1 pack a da y x 43 years. , history of tobacco use. COMPARISON: None. TECHNIQUE: Multiple axial non-contrast scans were obtained from approximately the lung apices through the upper abdomen. Coronal and sagittal reformatted images were obtained. Low dose technique was uti lized. CT DLP: 120.0 mGycm, Automated exposure control for dose reduction was used. CT Contrast: Contrast used: None Oral contrast used: None FINDINGS: ======== Lack of intravenous contrast and low dose technique limits the evaluation of the vascular and soft ti ssue structures. LUNGS: No evidence of pulmonary fibrosis. No evidence of focal consolidation, pneumothorax or pleural effusion. Nodules: RUL: None. RML: None. RLL: None. JOVAN: Calcified granuloma along the fissure. LLL: None. AIRWAY: Patent and unremarkable. HEART: Size within normal limits. MEDIASTINUM: No gross evidence of adenopathy. VASCULATURE: No aortic aneurysm. MUSCULOSKELETAL: No acute osseous abnormalities SOFT TISSUES/LYMPH NODES: Unremarkable. LOWER NECK: No significant findings. UPPER ABDOMEN: No significant findings. IMPRESSION: No clinically significant pulmonary nodules. CT LUNG RAD AND CT CHEST RECOMMENDATION: Lung-Rad 2 Benign Appearance or Behavior: Continue annual sc reening with LDCT in 12 months. S Modifier (other clinically significant findings): None Recommend smoking cessation (if current smoker), or continuation of smoking cessation (if prior smoke r). Annual screening for lung cancer with low-dose computed tomography is recommended in adults ages 55 to 77 years who have a 30 pack-year smoking history and currently smoke or have quit within the pa st 15 years. Screening should be discontinued once a person has not smoked for 15 years or develops a health problem that substantially limits life expectancy or the ability or willingness to have curat soren lung surgery. Lung rads 2021 [email or web address]
== END | disposition home or self-care (01) ==
LOC: RADCTMAIN 15:48
PROVIDERS: ATTEND Family Medicine
DX: Z12.2 Encounter for screening for malignant neoplasm of respiratory organs (principal); F17.210 Nicotine dependence, cigarettes, uncomplicated
CPT/HCPCS: 71271

== ENCOUNTER → 2024-02-04 | Outpatient (CLI) | payer BC ==
--- NOTE | 2024-02-04 15:57 | CTL ---
EXAMINATION TYPE: CT Low Dose Lung DATE OF EXAM ORDERED: 02/04/2024 HISTORY: Nicotine dependence, current smoker, 44 pack-year history. Lung cancer screening CT DLP: 138.[address] CTDI: 3.7 mGy Automated exposure control for dose reduction was used. SCREENING VISIT: Second screening visit COMPARISON: CT Low Dose Lung 01/23/2023 TECHNIQUE: Low dose computed tomography scan was performed through the chest at 1 mm thick sections a nd reconstructed images in multiple planes at 1 mm and [address] DIAGNOSTIC QUALITY: Satisfactory FINDINGS: Nodules: Stable left lower lobe 2 mm pulmonary nodule (series 6, image 49). Stable posterior left upper lobe 3 mm pulmonary nodule (series 6, image 23). No new or enlarging pulmonary nodules. LUNGS: COPD: Severity: None Fibrosis: Severity: None Lymph nodes: None Other findings: None RIGHT PLEURAL SPACE: Effusion: None Calcification: None Thickening: None Pneumothorax: None LEFT PLEURAL SPACE: Effusion: None Calcification: None Thickening: None Pneumothorax: None HEART: Heart Size: Normal Coronary Calcification: Small Pericardial Effusion: None OTHER FINDINGS: Upper abdomen: None Bony thorax: None Supraclavicular region: None Other: None IMPRESSION: Stable couple of pulmonary nodules measuring up to 3 mm. No new or enlarging pulmonary no dules. CT LUNG RAD AND CT CHEST RECOMMENDATION: Lung-Rad 2 Benign Appearance or Behavior: Continue annual sc reening with LDCT in 12 months. S Modifier (other clinically significant findings): None [facility], , 02/04/2024 3:55 PM
== END | disposition home or self-care (01) ==
LOC: RADCTMAIN 15:19
PROVIDERS: ATTEND Family Medicine
DX: Z12.2 Encounter for screening for malignant neoplasm of respiratory organs
CPT/HCPCS: 71271

== ENCOUNTER → 2024-05-22 | Outpatient (CLI) | payer BC ==
--- NOTE | 2024-05-23 22:31 | CT ---
EXAMINATION TYPE: CT urogram wo/w con DATE OF EXAM: 05/22/2024 5:27 PM COMPARISON: None. CLINICAL INDICATION: Male, 58 years old with history of R31.1 BENIGN ESSENTIAL MICROSCOPIC HEMATURIA, Microscopic hematuria. TECHNIQUE: Axial images were obtained from above the diaphragm to the pubic rami in the axial plane a t 5 mm thick sections. Reconstructed images are reviewed on the computer in the coronal plane. CONTRAST: 100 ml mL of Isovue 300. Study performed DLP: 3155 mGycm, Automated exposure control for dose reduction was used. FINDINGS: Limited CT sections are obtained the lung bases. The lung bases are clear. CT ABDOMEN: Liver: Normal Spleen: Normal Pancreas: Normal Adrenal glands: The adrenal glands are normal. Gallbladder: Normal Kidneys: No masses are evident. No hydronephrosis is present. No cysts are present. No renal stone s are evident. CT urography is performed. Three-D reconstructed images performed separate computer by the [employer] [facility] are reviewed. Renal calyces infundibula and renal pelves are normal. Ureters follow a normal calib er course and contour and sequential images to urinary bladder. Urinary bladder fills normally withou t intraluminal or extramural defects. Other portions of the ureter was not visualized during this exa mination. No suspicious changes to suggest obstruction Aorta: Vascular calcification is within the aorta. Fusiform prominence of the mid abdominal aorta is present with an AP diameter of 3.0 cm. Inferior vena cava: Normal. CT PELVIS: Loops of bowel within the abdomen and pelvis are normal. Few scattered diverticuli through the sigmoi d colon. No acute diverticulitis is evident. There are loops of bowel which are incompletely diste nded or lack oral contrast limiting their evaluation. Appendix: Normal as visualized. Urinary bladder: Normal. Genitourinary structures: Prostate is normal. Osseous structures: No suspicious lytic or sclerotic lesions. IMPRESSION: 1. Normal CT urogram. No suspicious abnormalities account for hematuria identified. 2. Diverticulosis without acute diverticulitis. [facility], , 05/23/2024 10:29 PM
== END | disposition home or self-care (01) ==
LOC: RADCTMAIN 16:05
PROVIDERS: ATTEND Urology
DX: R31.1 Benign essential microscopic hematuria (principal); K57.90 Diverticulosis of intestine, part unspecified, without perforation or abscess without bleeding
CPT/HCPCS: 74178; 74400; Q9967